=== PATIENT | male | born 1995 | race Caucasian/White ===

== ENCOUNTER 2019-03-30 16:08 | Emergency (ER) | payer OTHER ==
[~2019-03-30] VITALS: Ht 190.5 cm; Wt 105.7 kg
--- NOTE | 2019-03-30 16:15 | NUR ---
[id number], C/O R KNEE PAIN, POSSIBLE DISLOCATION. PATIENT A/OX4, PS 8/10. FAMILY AT BEDSIDE. 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 NO DISTRESS NOTED. WILL MONITOR.
[2019-03-30] MEDS ORDERED: MORPHINE SULFATE INJ 4 MG/ML DISP.SYRIN ONE (16:33)
--- NOTE | 2019-03-30 16:40 | NUR ---
RECEIVED VERBAL ORDER FROM MD TO GIVE MORPHINE 4MG TO PATIENT PRIOR TO PROCEDURE. MD PUT AN ORDER FOR MORPHINE 2MG IV X2.
[2019-03-30] MEDS ORDERED: DIAZEPAM 5 MG/ML 2 ML DISP.SYRIN IV ONE (17:00)
[2019-03-30] MEDS ORDERED: MORPHINE SULFATE INJ 2 MG/ML DISP.SYRIN IV ONE ×2 (17:00)
--- NOTE | 2019-03-30 17:17 | NUR ---
S/P CLOSED REDUCTION ON RIGHT KNEE PERFORMED BY DR. VALLEJO
[2019-03-30 17:43] VITALS: BP 133/66
--- NOTE | 2019-03-30 17:44 | NUR ---
KNEE IMMOBILIZER APPLIED, CRUTCHES PROVIDED. IV removed. Catheter intact and site benign. Pressure and 4x4 applied to site. No bleeding noted.Patient discharged to home in stable condition. Written and verbal after care instructions given. Patient verbalizes understanding of instruction.
== END 2019-03-30 17:44 | disposition home or self-care (01) ==
LOC: ER 16:08
DX: S83.014A Lateral dislocation of right patella, initial encounter (principal); X50.1XXA Overexertion from prolonged static or awkward postures, initial encounter; Y93.89 Activity, other specified; Y92.89 Other specified places as the place of occurrence of the external cause; Y99.8 Other external cause status
CPT/HCPCS: 27560; 73560 ×2; 99284; J2270